=== PATIENT | male | born 1945 | race Caucasian/White ===

== ENCOUNTER 2016-03-31 08:07 | Day surgery (SDC) | payer MEDICARE, OTHER ==
[~2016-03-31 08:07] MED LIST: DEMEROL 50 MG IJ ONE; DEMEROL 50 MG IV ONE; VERSED 5 MG/5 ML IV ONE
[2016-03-31] MEDS ORDERED: Sodium Chloride 0.9% 1000 ML 1,000 ML ONE ×2 (08:37→10:28)
[2016-03-31] MEDS ORDERED: Sodium Chloride 0.9% 1000 ML 1,000 ML IV SCH (08:45)
[2016-03-31 11:37] VITALS: O2SAT 94
[2016-03-31 12:04] VITALS: BP 112/72; PULSE 80
--- NOTE | 2016-04-01 07:46 | OP ---
SURGERY DATE/TIME: 03/31/2016 1015 PREOPERATIVE DIAGNOSIS: Follow up polyps. POSTOPERATIVE DIAGNOSIS: Two polyps in the transverse colon both 1 cm, both taken with hot biopsy forceps to extinction. 2) A large sessile polyp of the cecum measuring 4 x 2.5 cm being firm, indurated, and sessile. Two employee's representative cold biopsies submitted. PROCEDURE: Colonoscopy complete to cecum with hot polypectomy x2 and cold biopsy x2. SURGEON: Smooth Balderas M.D. ANESTHESIA: IV sedation. COMPLICATIONS: None. CONDITION: Stable. INDICATION: A 70 year old requiring re-evaluation. He has history of polyps three years. DESCRIPTION OF PROCEDURE: Taken to the endoscopy suite. Left lateral decubitus position. IV sedation titrated. Oximeter kept over 90%. The scope advanced to the cecum. There were two polyps in the transverse colon both about 1 cm, both taken with hot biopsy forceps to extinction. The base of the cecum satisfactory. Ileocecal valve satisfactory but just right beside this was a 2 x 4 cm sessile firm polyp and two employee's representative cold biopsies taken. It clearly needs resection regardless and it is almost certainly is malignant. The scope was then circumferentially withdrawn. No additional lesions noted. Findings discussed with the . He will be scheduled for right hemicolectomy.
== END 2016-03-31 12:05 | disposition home or self-care (01) ==
LOC: SDC 08:07
PROVIDERS: ATTEND Surgery
PROC: 0DBH8ZX Excision of Cecum, Via Natural or Artificial Opening Endoscopic, Diagnostic (ICD-10-PCS; principal; 2016-03-31)
PROC: 0DBL8ZX Excision of Transverse Colon, Via Natural or Artificial Opening Endoscopic, Diagnostic (ICD-10-PCS; 2016-03-31)
DX: D12.3 Benign neoplasm of transverse colon (principal); D12.0 Benign neoplasm of cecum; Z86.010 Personal history of colon polyps
CPT/HCPCS: 36415; 88305; J2175; J2250

== ENCOUNTER 2016-04-08 12:24 | Inpatient (IN) | payer MEDICARE, OTHER ==
[2016-04-14] MEDS ORDERED: DILAUDID 2 MG INJECTION IV ONE (08:00)
[2016-04-14] MEDS ORDERED: Sufenta 50 MCG/ML IV ONE (08:00)
[2016-04-14] MEDS ORDERED: OFIRMEV IV ONE (08:00)
[2016-04-14] MEDS ORDERED: Ketamine HCl 50 MG/ML IJ ONE (08:00)
[2016-04-14] MEDS ORDERED: TRANDATE 20 MG/5 ML SYRINGE IV ONE (08:00)
[2016-04-14] MEDS ORDERED: Narcan 0.4 MG/ML IV ONE (08:00)
[2016-04-14] MEDS ORDERED: Zofran 4 MG/2 ML VIAL IV ONE (08:00)
[2016-04-14] MEDS ORDERED: EPINEPHRINE 1:1000 1 ML AMP IV ONE (08:00)
[2016-04-14] MEDS ORDERED: Quelicin Fliptop 200 MG/10 ML IV ONE (08:00)
[2016-04-14] MEDS ORDERED: PHENYLEPHRINE HCL IJ ONE (08:00)
[2016-04-14] MEDS ORDERED: Naropin 0.5% 30 ML VIAL IJ ONE (08:00)
[2016-04-14] MEDS ORDERED: Versed 2 MG/2 ML Injection IV ONE (08:00)
[2016-04-14] MEDS ORDERED: Astramorph-Pf 5 MG/10 ML IV ONE (08:00)
[2016-04-14] MEDS ORDERED: Decadron 4 MG INJ IV ONE (08:00)
[2016-04-14] MEDS ORDERED: SUBLIMAZE 250 MCG/5 ML IV ONE (08:00)
[2016-04-14] MEDS ORDERED: DIPRIVAN 200 MG/20 ML IV ONE (08:00)
[2016-04-14] MEDS ORDERED: Zemuron 100 MG/10 ML IV ONE (08:00)
[2016-04-14] MEDS ORDERED: Pre-Attached Lta Kit TP ONE ×2 (08:00→14:32)
[2016-04-14] MEDS ORDERED: Lactated Ringers 1,000 ML IV ONE ×3 (08:36→16:16)
[2016-04-14] MEDS ORDERED: ENTEREG 12 MG PO ONE (09:29)
[2016-04-14] MEDS ORDERED: MEFOXIN 2 GM PREMIX** 50 ML IV ONE ×2 (09:29→10:41)
[2016-04-14] MEDS ORDERED: Lactated Ringers 1,000 ML IV SCH (09:30)
[2016-04-14] MEDS ORDERED: BICITRA 30 ML CUP PO ONE (09:30)
[2016-04-14] MEDS ORDERED: Pepcid 20 MG VIAL IV ONE ×2 (09:30→10:41)
--- NOTE | 2016-04-14 10:26 | HP ---
DATE OF SURGERY: 04/14/2016 ADMISSION DIAGNOSIS: Right colon lesion. ANTICIPATED PROCEDURE: Right hemicolectomy. HISTORY OF PRESENT ILLNESS: The patient had a right colon lesion requiring resection and presents for such. PAST MEDICAL HISTORY: ALLERGIES: NONE. MEDICATIONS: Levothyroxine. PAST SURGICAL HISTORY: Rotator cuff. SOCIAL HISTORY: Negative. FAMILY HISTORY: Negative. REVIEW OF SYSTEMS: Negative. PHYSICAL EXAMINATION: VITAL SIGNS: Normal. CHEST: Clear. COR: Regular. ABDOMEN: No palpable organomegaly or mass. IMPRESSION: Right sessile polyp. PLAN: Right hemicolectomy.
[2016-04-14] MEDS ORDERED: BICITRA 30 ML CUP ONE (10:41)
[2016-04-14] MEDS ORDERED: OFIRMEV 100 ML IV ONE (14:32)
[2016-04-14] MEDS ORDERED: AFRIN NASAL SPRAY NS ONE (15:11)
[2016-04-14] MEDS ORDERED: Zofran 4 MG/2 ML VIAL IV PRN (17:00)
[2016-04-14] MEDS ORDERED: HOLD NARCOTIC ANALGESICS AND SEDATIVES X24 HR MC SCH (17:00)
[2016-04-14] MEDS ORDERED: BENADRYL 50 MG/ML IV PRN (17:00)
[2016-04-14] MEDS ORDERED: Narcan 0.4 MG/ML IV PRN (17:00)
[2016-04-14] MEDS ORDERED: CLARITIN 10 MG PO PRN (17:00)
[2016-04-14] MEDS ORDERED: PERCOCET TABLET 5/325MG PO PRN (17:00)
[2016-04-14] MEDS ORDERED: TYLENOL 325 MG PO PRN (17:02)
[2016-04-14] MEDS ORDERED: FEVERALL 650 MG RC PRN (17:03)
[2016-04-14] MEDS ORDERED: Zofran 4 MG/2 ML VIAL IVIM PRN (17:04)
[2016-04-14] MEDS ORDERED: SUBLIMAZE 100 MCG/2 ML ONE ×2 (17:04→17:21)
[2016-04-14] MEDS ORDERED: Nubain 10 MG/ML IV PRN (17:06)
[2016-04-14] MEDS ORDERED: MORPHINE SULFATE 2 MG INJ IV PRN (17:08)
[2016-04-14] MEDS: D5W/0.45NS W/ 20mEq KCl 1000 ML 1,000 ML IV SCH (17:59)
[2016-04-14] MEDS: MEFOXIN 1 Gm/ D5W 50 Ml** 50 ML IV SCH ×2 (18:00→23:47)
[2016-04-15] MEDS: D5W/0.45NS W/ 20mEq KCl 1000 ML 1,000 ML IV SCH (05:02)
[2016-04-15] MEDS: MEFOXIN 1 Gm/ D5W 50 Ml** 50 ML IV SCH ×4 (05:12→23:53)
[2016-04-15 05:16] LABS: BASOPHIL % 0.1 % (0.0-0.4); Granulocytes % 84.3 % (36.0-66.0); Lymphocytes % 10.6 % (24.0-44.0); Mean Cell Volume 89.4 fl (78-100); Mean Corpuscular Hemoglobin 30.9 pg (26-32); Mean Platelet Volume 10.3 fl (6-9.5); Platelet Count 145 K/mm3 (150-450); Red Blood Count 3.88 M/mm3 (4.1-5.6); Red Cell Distribution Width 12.5 % (11.5-14.0); White Blood Count 10.9 K/mm3 (4.0-10.5)
[2016-04-15 05:35] LABS: ANION GAP 16.5 MEQ/L (5-15); BLOOD UREA NITROGEN 10 mg/dL (9-20); CHLORIDE 102 mEq/L (98-107); Carbon Dioxide 21.7 mEq/L (21-32); Glucose 308 MG/DL (70-110); Potassium 4.3 mEq/L (3.5-5.1); SODIUM 136 mEq/L (136-145)
[2016-04-15] MEDS ORDERED: RANITIDINE HCL 75 MG PO PRN (07:08)
[2016-04-15] MEDS ORDERED: Pepcid 20 MG PO PRN (07:10)
--- NOTE | 2016-04-15 08:21 | OP ---
THIS REPORT WAS AMENDED ON 04/21/16. 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 POSTOPERATIVE DIAGNOSIS: 1. CECAL CANCER. PROCEDURE: 1. Right hemicolectomy. SURGEON: Smooth Balderas M.D. ANESTHESIA: General. COMPLICATIONS: None. CONDITION: Stable. INDICATION: Patient with a firm, indurated, sessile mass of the cecum. OPERATIVE PROCEDURE: Taken to surgery. General anesthetic. Routine prep and drape. A limited right mid abdominal transverse incision. Time-out had been performed. There had been some inflammatory process. The omentum was stuck a little bit. The right gutter was stuck a little bit. With care and patience, this was mobilized, in particular small almost atrophic down hanging over the pelvis. This retroperitoneal plane was entered. Care was taken not to injure the ureter. The duodenum was clearly seen and the right colon elevated upwards. The omentum, the right half, was resected. There was some residual above the colon that was left in place. The colon was taken near the midline with the ALLEN stapling device. The small bowel was taken 4" from the ileocecal valve. Mesentery taken with a ligature. The final vascular pedicle triply Ligaclipped and transected. Specimen delivered off to the side table. It was inspected at the end of the case. The lesion was dollar sized. It was about 8 mm to 1 cm thick, quite firm. There was no palpable lymphadenopathy. It clearly appeared to be grossly cancerous. It was felt that a satisfactory cancer resection had been performed. [id number], functional end-to-end with a ALLEN green followed by TA michelle. Mesentery defect approximated with running suture of 3-0 PDS. The end was over sewn with simple interrupted suture of #3-0 PDS. Bowel laid back in organized fashion. It laid nicely. The small bowel was laid very nicely. The residual left-sided omentum brought down. Anterior abdominal wall closed with 0 looped PDS. Subq tissue irrigated. Skin closed with robb. Sterile dressing applied. Patient tolerated the procedure satisfactory.
[2016-04-15] MEDS: ENOXAPARIN SODIUM SQ SCH (10:12)
[2016-04-15] MEDS: ENTEREG 12 MG PO SCH ×2 (10:12→21:05)
[2016-04-15] MEDS ORDERED: NORCO 5/325 MG PO PRN (17:00)
[2016-04-15] MEDS: Morphine PCA 1 MG/ML 30 ML IV PRN (17:19)
[2016-04-15] MEDS: SYNTHROID 75 MCG PO SCH (21:05)
[2016-04-16] MEDS: D5W/0.45NS W/ 20mEq KCl 1000 ML 1,000 ML IV SCH ×2 (04:36→16:08)
[2016-04-16] MEDS: MEFOXIN 1 Gm/ D5W 50 Ml** 50 ML IV SCH ×4 (05:31→23:48)
[2016-04-16] MEDS: ENOXAPARIN SODIUM SQ SCH (09:13)
[2016-04-16] MEDS: ENTEREG 12 MG PO SCH ×2 (09:13→21:12)
[2016-04-16] MEDS: SYNTHROID 75 MCG PO SCH (21:12)
[2016-04-17] MEDS: MEFOXIN 1 Gm/ D5W 50 Ml** 50 ML IV SCH ×3 (05:35→17:45)
[2016-04-17] MEDS: D5W/0.45NS W/ 20mEq KCl 1000 ML 1,000 ML IV SCH ×2 (05:35→17:45)
[2016-04-17] MEDS: ENOXAPARIN SODIUM SQ SCH (09:34)
[2016-04-17] MEDS: ENTEREG 12 MG PO SCH ×2 (09:35→21:21)
[2016-04-17] MEDS: SYNTHROID 75 MCG PO SCH (21:33)
[2016-04-18] MEDS: MEFOXIN 1 Gm/ D5W 50 Ml** 50 ML IV SCH ×4 (00:33→17:55)
[2016-04-18] MEDS: D5W/0.45NS W/ 20mEq KCl 1000 ML 1,000 ML IV SCH ×3 (05:17→15:53)
[2016-04-18] MEDS: ENOXAPARIN SODIUM SQ SCH (09:33)
[2016-04-18] MEDS: ENTEREG 12 MG PO SCH ×2 (09:34→21:52)
[2016-04-18] MEDS: NORCO 5/325 MG PO PRN ×3 (12:36→21:51)
[2016-04-18] MEDS: SYNTHROID 75 MCG PO SCH (22:09)
[2016-04-19] MEDS: MEFOXIN 1 Gm/ D5W 50 Ml** 50 ML IV SCH ×3 (00:35→11:13)
[2016-04-19] MEDS: D5W/0.45NS W/ 20mEq KCl 1000 ML 1,000 ML IV SCH (04:24)
[2016-04-19] MEDS: Morphine PCA 1 MG/ML 30 ML IV PRN ×2 (05:50→13:07)
[2016-04-19] MEDS: ENTEREG 12 MG PO SCH (09:39)
[2016-04-19] MEDS: ENOXAPARIN SODIUM SQ SCH (09:39)
[2016-04-19 11:50] VITALS: O2SAT 94
[2016-04-19 13:16] VITALS: BP 138/88; PULSE 79
[2016-04-19] MEDS: NORCO 5/325 MG PO PRN (14:09)
== END 2016-04-19 14:20 | disposition home or self-care (01) | DRG 331 ==
LOC: UNDOADMIN 04-14 09:41 → MED SURG 04-14 09:41
PROVIDERS: ADMIT Surgery; ATTEND Surgery
PROC: 0DTF0ZZ Resection of Right Large Intestine, Open Approach (ICD-10-PCS; principal; 2016-04-14)
DX: C18.0 Malignant neoplasm of cecum (principal)
CPT/HCPCS: 00840; 36415; 62322; 64425; 80048; 82962; 85025; 87086; 88309; 88341; 88342; 94760; 94762; J0171; J0330; J0694; J1100; J1170; J1200; J1650; J2250; J2270; J2274; J2300; J2310; J2370; J2405; J2704; J2795; J3010; L0625; A9270-GY

== ENCOUNTER 2016-05-12 07:13 | Day surgery (SDC) | payer MEDICARE, OTHER ==
--- NOTE | 2016-05-09 08:58 | HP ---
DATE: 05/12/16 ANTICIPATED PROCEDURE: 1. PORT PLACEMENT. HISTORY OF PRESENT ILLNESS: Patient had a right hemicolectomy. Did have 2 positive nodes. He is requiring access for chemotherapy for colon cancer. Presents for such. PAST MEDICAL HISTORY: ALLERGIES: NONE. CURRENT MEDICATIONS: Levothyroxine. SURGERIES: Rotator cuff, right hemicolectomy. SOCIAL HISTORY: Negative. FAMILY HISTORY: Negative. REVIEW OF SYSTEMS: Hypothyroidism, controlled. PHYSICAL EXAMINATION: Vital signs normal. CHEST: Clear. COR: Regular. ABDOMEN: Healing upper abdominal incision. PLAN: Port placement.
[~2016-05-12 07:13] MED LIST changes: -DEMEROL 50 MG IJ ONE; -DEMEROL 50 MG IV ONE; +Sodium Chloride 0.9% 1000 ML 1,000 ML ONE; -VERSED 5 MG/5 ML IV ONE; +XYLOCAINE 1% HCL 20 ML MDV ONE
[2016-05-12] MEDS ORDERED: Sodium Chloride 0.9% 1000 ML 1,000 ML ONE (07:36)
[2016-05-12] MEDS ORDERED: CEFAZOLIN 2 GM-D5W BAG** 50 ML IV ONE ×2 (07:54→07:58)
[2016-05-12] MEDS ORDERED: DEMEROL 50 MG IV ONE (08:00)
[2016-05-12] MEDS ORDERED: VERSED 5 MG/5 ML IV ONE (08:00)
[2016-05-12] MEDS ORDERED: Sodium Chloride 0.9% 1000 ML 1,000 ML IV SCH (08:00)
--- NOTE | 2016-05-12 10:31 | XRAY ---
Indication: Port placement. Intraoperative fluoroscopy was provided for 6 seconds. 2 digital spot images submitted for interpretation demonstrates partially visualized left sided guidewire and catheter tip projecting over the SVC. Correlate with intraoperative findings/report.
[2016-05-12 11:10] VITALS: PULSE 69
[2016-05-12 11:44] VITALS: BP 116/75; O2SAT 95
--- NOTE | 2016-05-12 16:25 | OP ---
SURGERY DATE: 05/12/16 SURGERY TIME: 909 PREOPERATIVE DIAGNOSIS: 1. INADEQUATE ACCESS FOR CHEMOTHERAPY FOR COLON CANCER. POSTOPERATIVE DIAGNOSIS: 1. INADEQUATE ACCESS FOR CHEMOTHERAPY FOR COLON CANCER. PROCEDURE: 1. Tunneled left subclavian Port-a-Cath with fluoroscopic C-arm guidance. SURGEON: Smooth Balderas M.D. HOSPITAL ACCOUNT LIAISON: Tiffanie Roberts MS-III. ANESTHESIA: IV sedation. COMPLICATIONS: None. CONDITION: Stable. INDICATION: Patient requiring access. OPERATIVE PROCEDURE: Routine prep and drape. Venipuncture obtained. Guidewire was placed. Catheter was placed. Good aspiration. Flushed with heparinized saline. Secured with 3-0 Prolene, 3-0 Vicryl, 4-0 Vicryl, and Steri-strips. Patient tolerated the procedure satisfactory.
== END 2016-05-12 11:25 | disposition home or self-care (01) ==
LOC: SDC 07:13
PROVIDERS: ATTEND Surgery
PROC: 05H633Z Insertion of Infusion Device into Left Subclavian Vein, Percutaneous Approach (ICD-10-PCS; principal; 2016-05-12)
DX: C18.9 Malignant neoplasm of colon, unspecified (principal); E03.9 Hypothyroidism, unspecified
CPT/HCPCS: 77001; J0690; J1642; J2175; J2250

== ENCOUNTER 2016-12-01 08:38 | Day surgery (SDC) | payer MEDICARE, OTHER ==
[~2016-12-01 08:38] MED LIST changes: +Lactated Ringers 1,000 ML IV ONE; +Lactated Ringers 1,000 ML IV SCH; -Sodium Chloride 0.9% 1000 ML 1,000 ML ONE; -XYLOCAINE 1% HCL 20 ML MDV ONE
[2016-12-01] MEDS ORDERED: DEMEROL 50 MG SDV IV ONE (08:39)
[2016-12-01] MEDS ORDERED: VERSED 5 MG/5 ML IV ONE (08:39)
[2016-12-01] MEDS ORDERED: DEMEROL 50 MG IV ONE (08:39)
[2016-12-01] MEDS ORDERED: Lactated Ringers 1,000 ML IV SCH (11:30)
--- NOTE | 2016-12-01 11:40 | HP ---
DATE OF SURGERY: 12/01/2016 ANTICIPATED PROCEDURE: Colonoscopy. HISTORY OF PRESENT ILLNESS: The patient had colonoscopic examination back in 2014. He has had a right hemicolectomy and chemo. He presents for follow up. He was referred by Dr. Kaur. PAST MEDICAL HISTORY: ALLERGIES: NONE. MEDICATIONS: Levothyroxine. PAST SURGICAL HISTORY: Rotator cuff, right hemicolectomy. SOCIAL HISTORY: Negative. FAMILY HISTORY: Negative. REVIEW OF SYSTEMS: Negative. PHYSICAL EXAMINATION: VITAL SIGNS: Normal. CHEST: Clear. COR: Regular. ABDOMEN: Healed incision. PLAN: Colonoscopic examination.
[2016-12-01] MEDS ORDERED: Lactated Ringers 1,000 ML IV ONE (12:11)
[2016-12-01 12:41] VITALS: O2SAT 90
[2016-12-01 13:31] VITALS: BP 119/68; PULSE 62
--- NOTE | 2016-12-01 14:13 | OP ---
SURGERY DATE/TIME: 12/01/2016 1134 PREOPERATIVE DIAGNOSIS: Follow up colon cancer. POSTOPERATIVE DIAGNOSIS: Normal except for two polyps. PROCEDURE: Colonoscopy complete to anastomosis, hot polypectomy x2. SURGEON: Smooth Balderas M.D. ANESTHESIA: IV sedation. 15 minutes monitored. COMPLICATIONS: None. CONDITION: Stable. INDICATION: The patient has had previous right hemicolectomy and presents for follow up. DESCRIPTION OF PROCEDURE: He was taken to endoscopy. Left lateral decubitus position. After suitable sedation obtained the scope was introduced. The anastomosis was totally normal. On circumferential withdrawal 4 inches distal to anastomosis there is 8 mm polyp taken with hot biopsy forceps to extinction. The scope was then further withdrawn in the distal sigmoid. There was a 6 mm polyp taken with hot biopsy forceps to extinction. There was moderate diverticulosis and there were moderate hemorrhoids. The patient tolerated the procedure satisfactorily.
== END 2016-12-01 13:49 | disposition home or self-care (01) ==
LOC: SDC 08:38
PROVIDERS: ATTEND Surgery
PROC: 0DBN8ZX Excision of Sigmoid Colon, Via Natural or Artificial Opening Endoscopic, Diagnostic (ICD-10-PCS; principal; 2016-12-01)
PROC: 0DBL8ZX Excision of Transverse Colon, Via Natural or Artificial Opening Endoscopic, Diagnostic (ICD-10-PCS; 2016-12-01)
DX: K63.5 Polyp of colon (principal); Z90.49 Acquired absence of other specified parts of digestive tract; Z79.899 Other long term (current) drug therapy
CPT/HCPCS: 36415; J2175; J2250

== ENCOUNTER 2020-01-23 06:37 | Day surgery (SDC) | payer MEDICARE, OTHER ==
--- NOTE | 2020-01-16 13:07 | HP ---
DATE OF SURGERY: 01/23/2020 HISTORY OF PRESENT ILLNESS: The patient presented to the office in need of endoscopy. He had his last colonoscopy about three years ago and did have some colon polyps. He denies any recent symptoms at this time. He reports that he has some hard stools occasionally. PAST MEDICAL HISTORY: Diabetes, reflux, hypertension, hypothyroidism. PAST SURGICAL HISTORY: Laparoscopic cholecystectomy. Cataract. ALLERGIES: NKDA. MEDICATIONS: Carvedilol, levothyroxine, Glipizide, metformin, pantoprazole, famotidine. FAMILY HISTORY: None reported. SOCIAL HISTORY: None reported. REVIEW OF SYSTEMS: CONSTITUTIONAL: Denies fever or chills. CHEST: Denies shortness of breath. CVS: Denies chest pain. ABDOMEN: Denies abdominal pain, nausea, vomiting, diarrhea or rectal bleeding. Reports occasional constipation. INTEGUMENTARY: Negative. PHYSICAL EXAMINATION: GENERAL: No acute distress. CHEST: Nonlabored. No shortness of breath. CVS: Regular rate and rhythm. ABDOMEN: Soft, nontender to palpation. EXTREMITIES: No edema. NEUROLOGIC: Alert. PSYCHIATRIC: Appropriate. IMPRESSION: History of colon polyps. PLAN: Colonoscopy with Dr. Smooth Balderas. As dictated by Elva Brandon NP.
[2020-01-23] MEDS ORDERED: Lactated Ringers 1,000 ML IV SCH (07:00)
[2020-01-23] MEDS ORDERED: DIPRIVAN 200 MG/20 ML IV ONE (08:01)
[2020-01-23] MEDS ORDERED: PHENYLEPHRINE HCL ONE (08:39)
[2020-01-23] MEDS ORDERED: Lactated Ringers 1,000 ML IV ONE (09:26)
--- NOTE | 2020-01-23 09:32 | OP ---
SURGERY DATE/TIME: 01/23/2020 5730 PREOPERATIVE DIAGNOSIS: History of polyps. History of hemicolectomy. POSTOPERATIVE DIAGNOSIS: Normal right colon anastomosis, colon polyps, moderate diverticulosis, moderate internal hemorrhoids. PROCEDURE: Colonoscopy. SURGEON: Smooth Balderas M.D. ANESTHESIA: MAC. COMPLICATIONS: None. CONDITION: Stable. INDICATION: The patient had a previous right hemicolectomy requiring follow up. He has also has a history of polyps requiring follow up. His last endoscopic exam was three years ago. DESCRIPTION OF PROCEDURE: He is taken to endoscopy. Left lateral decubitus position. MAC sedation provided. Excellent anesthesia level present. Time out performed. Anal digital examination satisfactory. There was some laxity of the sphincter but he has already had sedation on board. Scope introduced. Scope advanced up the anastomosis. The anastomosis and mid abdomen and ileocolostomy. It looked excellent. There was no suggestion of any mucosal issues here at the anastomosis. One small blind staple end, one blind end was satisfactory. Circumferential withdrawal. A 2 mm lesion was present in the splenic flexure and taken with hot biopsy forceps. There was moderate diverticulosis of the sigmoid. There were mild internal hemorrhoids. There were some prominent varicosities in the rectum. Scope withdrawn. Patient tolerated the procedure satisfactorily. Follow up in three years.
[2020-01-23 09:43] VITALS: O2SAT 94
[2020-01-23 09:47] VITALS: BP 108/72; PULSE 81
== END 2020-01-23 09:50 | disposition home or self-care (01) ==
LOC: SDC 06:37
PROVIDERS: ATTEND Surgery
DX: Z09 Encounter for follow-up examination after completed treatment for conditions other than malignant neoplasm (principal); Z86.010 Personal history of colon polyps; K63.5 Polyp of colon; K57.30 Diverticulosis of large intestine without perforation or abscess without bleeding; E11.9 Type 2 diabetes mellitus without complications; K64.8 Other hemorrhoids; I10 Essential (primary) hypertension; E03.9 Hypothyroidism, unspecified; Z79.899 Other long term (current) drug therapy; Z90.49 Acquired absence of other specified parts of digestive tract
CPT/HCPCS: 82947; 99100; J2370; J2704